=== PATIENT | male | born 1950 | race Caucasian/White ===

== ENCOUNTER 2024-02-19 12:35 | Emergency (ER) | payer OTHER ==
[~2024-02-19] VITALS: Ht 170.2 cm; Wt 85.0 kg
[~2024-02-19 12:35] MED LIST: GLUC100017
[2024-02-19 12:38] VITALS: O2SAT 95
[2024-02-19] MEDS: SODIUM CHLORIDE 0.9% 1,000 ML IV ONE (14:14)
[2024-02-19 14:39] LABS: CHLORIDE 106 mEq/L (98-107); POTASSIUM 3.8 mEq/L (3.5-5.1); SODIUM 138 mEq/L (136-145)
[2024-02-19 14:40] LABS: CALCIUM 9.6 mg/dL (8.7-10.4); CARBON DIOXIDE 20 mEq/L (21-32)
[2024-02-19 14:45] LABS: CREATININE 1.3 mg/dL (0.6-1.3); GLUCOSE 115 mg/dL (70-105); UREA NITROGEN BLOOD 10 mg/dL (9-23)
[2024-02-19 14:46] LABS: LACTIC ACID 2.7 mmol/L (0.4-2.0); TROPONIN I HIGH SENSITIVITY 42 ng/L (3.0-53)
[2024-02-19 14:47] LABS: AMMONIA 18 uMol/L (<32); CREATINE KINASE 380 IU/L (46-171)
[2024-02-19 14:48] LABS: EOSINOPHILS % 0.1 % (0.0-5.0); HEMATOCRIT. 40.7 % (42.0-52.0); HEMOGLOBIN. 13.6 g/dL (14.0-18.0); LYMPHOCYTES % 9.1 % (20.0-50.0); MEAN CORPUSCULAR HEMOGLOBIN 29.8 pg (28.0-32.0); MEAN CORPUSCULAR HGB CONC 33.5 g/dL (31.0-37.0); MEAN CORPUSCULAR VOLUME 88.9 fL (80.0-94.0); MEAN PLATELET VOLUME 9.8 fl (7.4-10.4); MONOCYTES % 6.5 % (2.0-8.0); NEUTROPHILS % 83.3 % (40.0-76.0); PLATELET 220 x1000/uL (130-400); RED BLOOD CELL COUNT 4.58 mill/uL (4.7-6.1); RED CELL DISTRIBUTION WIDTH 14.9 % (11.6-14.6); WHITE BLOOD COUNT 9.3 x1000/uL (4.5-11.0)
[2024-02-19] MEDS: PIPERACILLIN/TAZO 3.375G/50ML 50 ML IV ONE (16:06)
[2024-02-19] MEDS: SODIUM CHLORIDE 0.9% (SEPSIS BOLUS) IV ONE (16:06)
[2024-02-19] MEDS: VANCOMYCIN 1G PREMIX 200 ML IV ONE (16:33)
[2024-02-19] MEDS: ACETAMINOPHEN 325MG TABLET PO ONE (16:33)
[2024-02-19 17:17] LABS: TROPONIN I HIGH SENSITIVITY 71 ng/L (3.0-53)
[2024-02-19 19:51] VITALS: BP 119/52; PULSE 86; RESP 26; TEMP 36.50292; O2SAT 99
== END 2024-02-19 20:24 | disposition short-term general hospital (02) ==
LOC: ER 12:52 → EDBEDREQ 19:50 → EDBEDREQTM 19:50 → ER 20:24
DX: A41.9 Sepsis, unspecified organism (principal); R53.1 Weakness; E87.21 Acute metabolic acidosis; R79.89 Other specified abnormal findings of blood chemistry; I25.2 Old myocardial infarction; Z20.822 Contact with and (suspected) exposure to COVID-19
CPT/HCPCS: 99291; 96365; 70450; 71045; 96367; 96375; 87426; 80048; 82140; 82550; 83605; 85025; 87040; 84484; 87804 ×2; 36415; 93005; J2543; J3370; J7030